=== PATIENT | female | born 1965 ===

== ENCOUNTER 2017-06-17 06:48 | Day surgery (SDC) | payer OTHER ==
[~2017-06-17 06:48] MED LIST: ENALAPRIL MALEA10 MG PO; NORVASC5 MG PO
== END 2017-06-17 14:00 | disposition home or self-care (01) ==
LOC: CIR.AMB 06:48
DX: N84.0 Polyp of corpus uteri (principal); N92.1 Excessive and frequent menstruation with irregular cycle